=== PATIENT | male | born 1985 | race African-American/Black ===

== ENCOUNTER 2022-01-07 01:54 | Day surgery (SDC) | payer BC, SELFPAY ==
[2021-12-31 13:09] VITALS: BMI 32.1
--- NOTE | 2021-12-31 13:18 | PC.NURSE ---
Report to the Outpatient Waiting Room, entrance under the green pavilion located off [facility], at time 0830 on date 01/07/22. OR Time: 1030. - You and your visitor will be asked a series of questions to screen for COVID 19 for your protection. - Only one visitor is allowed at this time. - The patient visitor is requested to leave or wait in car when not with patient. - A mask is required within the hospital. Patients may have clear liquids (water, carbonated beverages, clear teas, apple juice) until 3 hours prior to surgery with a maximum of 20 ounces. - No food from midnight until time of surgery Take the following medications with a SIP of water the morning of surgery: NONE Medications to discontinue per physician: N/A Date to take last dose: N/A Please no make-up, nail gabonese, hairspray, perfume, deodorant, or body powder the day of surgery. No jewelry (including any body piercings) or valuables the day of surgery, leave them at home. Please take a shower or bath the night before, or the morning of, surgery with an antibacterial soap. Wear comfortable, loose fitting clothing. - Jewelry must be removed prior to entering the operating room. Rings and piercings that are not removed may be cut off. - The hospital will not accept responsibility for valuables. - Please leave all valuables, including medications, at home the day of surgery. If you are going home after surgery, a licensed otr flatbed driver must drive you home. - NO public transportation without another adult. - We recommend that an adult stay with you for 24 hours following discharge. - We also recommend that you do not drive, make important decision, drink alcoholic beverages, or take any drugs that were not prescribed by your health care provider for at least 24 hours after your discharge time. Follow any additional instructions given to you from your surgeon. If you or anyone in your household have experienced Covid symptoms in the past week, please notify your surgeon or the nurse liaison at the phone number below for possible testing. Telephone instructions given to PT - GAL LEE and asked if any additional questions and then verbalized understanding. Patient advised to call surgeon office or pre surgery nurse liaison [phone] if any additional questions.
--- NOTE | 2022-01-04 14:13 | WPDANESEPPF ---
Anes - Initial Pre Proc Eval Procedure: Operation Date: 01/07/22 10:30 Proposed Procedures p Endoscopic Septoplasty - Vahid Burdick MD s Image Guided Bilateral Frontal Sinusotomy, Bilateral Ethmoidectomy, Bilateral Sphenoidotomy, Bilateral Maxillary Antrostomy, Bilateral Turbinate Reduction - Vahid Burdick MD Date/Time: 01/04/22 14:13 Surgeon: Vahid Burdick MD Pre Op Diagnosis: Chronic Sinusitis, Deviated Septum Patient Data Age: 36 Gender: M Height: 1.88 m Weight: 113.4 kg Allergies Allergy/AdvReac Type Severity Reaction Status Date / Time No Known Allergies Allergy Verified 12/31/21 13:08 Home Medications Medication Instructions Recorded Confirmed Type dupilumab 300 mg/2 mL subcutaneous 300 mg subcut [id number] 12/31/21 12/31/21 History pen injector (Dupixent) Patient hx anesthesia problems: none Family hx anesthesia problems: none Results Review: All pre-operative results and documents have been reviewed as part of the pre-operative evaluation. [facility] Past Medical History Medical History (Updated 01/04/22 @ 14:13 by Sj Echavarria MD) Obesity Social History Social History Years smoked: 10 Smoking status: Former smoker Tobacco type: cigarettes Smoking end date: 06/09/19 Alcohol intake: current Alcohol use details: MONTHLY Substance use: current Substance use type: marijuana Last use: JUL 2021 Living arrangements: alone Spiritual care concerns: No Anes - Eval Final PreProcedure Day of Procedure 01/04/22 14:13 Patient weight: obese Heart: regular rate and rhythm Lungs: clear to auscultation and normal air movement Airway: Mallampati scale class II Neurological: alert and oriented Last oral intake: >/= 8 hours ASA classification: II Emergent: no Anesthetic plan: proceed Anesthesia type and monitoring: general ETT Results Review: All pre-operative results and documents have been reviewed as part of the pre-operative evaluation. Informed Consent: The patient's anesthetic plan and its attendant risks and benefits were discussed with the patient/family/POA. Questions were solicited and answers provided to the satisfaction of the patient/family/POA.
[2022-01-07] VITALS (8 sets, daily range): BP systolic 132–163; BP diastolic 82–106; PULSE 78–103; RESP 11–24; TEMP 36.3–36.8; O2SAT 94–100
[2022-01-07] MEDS: LACTATED RINGERS 1,000 ML 30 ML IV CONT ×2 (09:30→13:08)
[2022-01-07] MEDS: ACETAMINOPHEN 500 MG TABLET 1000 MG PO (09:55)
--- NOTE | 2022-01-07 11:16 | PM.IMHP ---
H&P: HPI History of Present Illness Date/Time: 01/07/22 11:16 Chief Complaint: nasal polyps Narrative: chronic nasal polyps Review of Systems Review of Systems: All systems reviewed & are unremarkable except as noted in HPI and below PMFSH Past Medical History Medical History Obesity Social History Social History Years smoked: 10 Smoking status: Former smoker Tobacco type: cigarettes Smoking end date: 06/09/19 Alcohol intake: current Alcohol use details: MONTHLY Substance use: current Substance use type: marijuana Last use: JUL 2021 Living arrangements: alone Spiritual care concerns: No Meds Home Medications and Allergies Home Medications Medication Instructions Recorded Confirmed Type dupilumab 300 mg/2 mL subcutaneous 300 mg subcut [id number] 12/31/21 01/07/22 History pen injector (Dupixent) Allergies Allergy/AdvReac Type Severity Reaction Status Date / Time No Known Allergies Allergy Verified 01/07/22 09:49 Vital Signs Vital Signs - 24 hr 01/07/22 09:00 Temperature 36.8 C Pulse Rate 78 Respiratory Rate 18 Blood Pressure 139/96 H Pulse Oximetry 100 Oxygen Delivery Room Air Exam Narrative: bilateral extensive nasal polyps and chronic sinusitis Assessment and Plan Assessment and plan (1) Chronic pansinusitis: Code(s): J32.4 - Chronic pansinusitis Status: Acute Assessment and Plan: Karsten has bilateral chronic nasal polyposis here for FESS. r/b/a reviewed, pt agrees to proceed, all questions answered. Refer to H&P for full details.
--- NOTE | 2022-01-07 11:18 | WPDHPUPDATE1 ---
History and Physical Update Update Date/Time: 01/07/22 11:18 History and Physical has been reviewed, including an updated exam of the patient. There are NO changes in the patient's condition. Risks, benefits, and alternatives have been discussed and questions answered. Patient agrees to proceed with procedure.
[2022-01-07] MEDS: LIDO 1%/EPINEPHRINE 1:100,000 10 ML VIAL INFILTRATE (11:37)
[2022-01-07] MEDS: ceFAZolin 2 GM/D5W 50 ML 2 GM/50 ML BAG IVPB (11:39)
--- NOTE | 2022-01-07 12:58 | W.PM.PROC2 ---
Procedure Note - Detailed Date of Procedure 01/07/22 Pre-op Diagnosis Chronic Sinusitis, nasal polyposis Post-op Diagnosis Same Procedure Performed Bilateral maxillary antrostomy, total ethmoidectomy, sphenoidotomy, frontal sinusotomy, turbinoplasty. No septoplasty performed. Image guided surgery Surgeon Vahid Burdick MD Anesthesia General Indications chronic sinusitis Findings Bilateral extensive nasal polyposis Description of Procedure On the date of procedure the patient was met in the preoperative area and risk and benefits of the procedure reviewed with the patient as documented in the H&P and they elected to proceed with surgery. Patient was brought back to the operating room by the anesthesia team and underwent general endotracheal anesthesia. Once an adequate plane of anesthesia was obtained a timeout was performed to assure the patient identification the patient here to be performed were correct. They were.The patient was then prepped and draped in the normal fashion for endoscopic sinus surgery. The diffusion image guidance system was calibrated and used for the entire case. Afrin-soaked pledgets were placed in the nasal cavities bilaterally. The entire case was performed under endoscopic visualization. Nasal endoscopy was performed at the beginning of the case. 1% lidocaine with 1:100,000 epinephrine was then injected into the root of the middle turbinate and lateral nasal wall. Attention was first directed towards the right side. The middle turbinate was medialized and the osteomeatal complex was identified with a sheila probe. Using a 90 degree backbiter, the uncinate process was reflected anteriorly and removed using a combination of sharp and powered dissection. The maxillary antrostomy was then created and widened by identifying the natural ostia and opening the sinus with straight precious-cut forceps, backbiter, and microdebrider. Polyp tissue encountered was removed with microdebrider. Continuing with the microdebrider, the anterior ethmoid bulla was opened. Careful dissection was carried out posteriorly, through the basal lamella and posterior ethmoid cells until the sphenoid rostrum was identified. A Kanika suction bluntly identified the sphenoid os and the opening was widened with microdebrider and mushroom punch to 5mm. Polyp disease was removed from the sphenoid. Using an image guided curved suction as well as J-curette, the posterior most ethmoid cell was identified and the ethmoids were bluntly fractured and dissected from posterior to anterior along the base of the skull. The remaining bone fragments were removed with appropriate curved instruments and microdebrider. Next, The left maxillary antrostomy, ethmoidectomy and sphenoidotomy were carried out in identical fashion with findings of gross polyp disease throughout. Upon completion of these portions of the procedure, attention was returned to the right side the frontal recess was identified, with gross polyp disease obstructing and removed. Image guided seeker confirmed proper identification of the frontal recess. With all sinuses opened and no remaining polyp disease appreciated, nasopore packing was placed in the ethmoid acvities bilaterally. Hemostasis was ensured. Lastly, the bilateral inferior turbiantes were reduced submucosally using 2mm microdebrider and then outfractured with a sayer elevator. This significantly opened the airway. At this point, the procedure was concluded. Care the patient was transferred back to the anesthesia team and the patient was awoke in the operating room and transferred back to the PACU in stable condition. Vahid Burdick M.D. Estimated Blood Loss 300 Drains No Packing Yes (gagnon splints) Pathology None sent Complications No immediate complications Condition Stable Disposition PACU
[2022-01-07] MEDS: fentaNYL CITRATE INJ (*CRX) 100 MCG/2 ML VIAL 25 MCG IV PUSH ×2 (13:46→13:58)
--- NOTE | 2022-01-07 14:13 | SUR.PHASEI ---
DR. EPSTEIN AWARE OF SOME ELEVATED BLOOD PRESSURES. OKAY'S TO GO HOME.
== END 2022-01-07 15:17 | disposition home or self-care (01) ==
PROVIDERS: Visit Provider Otolaryngology
PROC: (CPT 61782; 2022-01-07 10:30)
DX: J32.8 Other chronic sinusitis (principal); J33.9 Nasal polyp, unspecified; Z87.891 Personal history of nicotine dependence; F12.90 Cannabis use, unspecified, uncomplicated; E66.9 Obesity, unspecified; Z68.33 Body mass index [BMI] 33.0-33.9, adult
CPT/HCPCS: 61782; 31256; 30140; 31287; 31253; A9270; J0690; J1100; J1170; J2250; J2405; J2704; J3010; J7120